=== PATIENT | female | born 1995 | race Caucasian/White ===

== ENCOUNTER 2019-11-20 09:19 | Day surgery (SDC) | payer BC ==
[2019-11-17 12:37] LABS: HEMATOCRIT 36.8 % (36-48); LYMPHOCYTES % (AUTO) 38.1 % (21.0-51.0); MEAN CORPUSCULAR HEMOGLOBIN 29.4 pg (27.0-33.0); MEAN CORPUSCULAR HGB CONC 33.4 g/dL (32.0-36.0); MONOCYTES % (AUTO) 18.1 % (3.0-13.0); NEUTROPHILS % (AUTO) 40.8 % (40.0-77.0); PLATELET COUNT (AUTO) 127 K/uL (130-400); RED BLOOD CELL COUNT(AUTO) 4.18 MIL/uL (4.00-5.50); RED CELL DISTRIBUTION WIDTH 12.7 % (11.0-15.5)
[2019-11-17 12:55] VITALS: BP 98/59
[2019-11-17 14:23] LABS: BAND NEUTROPHILS % (MANUAL) 1 % (0-2); EOSINOPHILS % (MANUAL) 1 % (1-6); LYMPHOCYTES % (MANUAL) 38 % (22-44); MAN.DIFF COMMENT-IMPRESSION MANUAL DIFFERENTIAL; MONOCYTES % (MANUAL) 18 % (2-9); SEGMENTED NEUTROPHILS % 42 % (40-70)
[2019-11-17 14:24] LABS: PLATELET MORPHOLOGY COMMENT SLIGHTLY DECREASED
--- NOTE | 2019-11-19 14:12 | NUR ---
notified Doctor Chase of wbc of 3.0, no new orders okay to proceed.
[~2019-11-20] VITALS: Ht 166.4 cm; Wt 55.8 kg
[2019-11-20] VITALS (17 sets, daily range): BP systolic 99–109; BP diastolic 53–74
[~2019-11-20 09:19] MED LIST: CEFAZOLIN SODIUM 1 GM VIAL IVP SCH
[2019-11-20] MEDS ORDERED: CALDOLOR 800MG+NS 250ML 250 ML IV ONE (09:46)
[2019-11-20] MEDS: LACTATED RINGERS 1000ML 1,000 ML IV SCH ×2 (09:54→10:47)
[2019-11-20] MEDS: CEFAZOLIN SODIUM 1 GM VIAL ONE ×2 (09:59→10:15)
[2019-11-20] MEDS ORDERED: LIDOCAINE PF 2% 5ML ABBOJECT ONE (10:09)
[2019-11-20] MEDS ORDERED: PROPOFOL 10 MG/ML 20ML VIAL IV ONE (10:10)
[2019-11-20] MEDS ORDERED: FENTANYL CITRATE PF 50 MCG/1 ML 2ML VIAL ONE (10:10)
[2019-11-20] MEDS ORDERED: MIDAZOLAM HCL 1 MG/ML 2ML VIAL ONE (10:12)
[2019-11-20] MEDS ORDERED: FERRIC SUBSULFATE ML ONE (10:33)
[2019-11-20] MEDS ORDERED: ONDANSETRON HCL 4 MG/2 ML VIAL ONE (10:35)
[2019-11-20] MEDS ORDERED: GLYCOPYRROLATE 1 MG/5 ML SYRINGE ONE (10:40)
== END 2019-11-20 12:30 | disposition home or self-care (01) ==
LOC: DAH 09:19
PROVIDERS: ATTEND Obstetrics & Gynecology
DX: Z30.432 Encounter for removal of intrauterine contraceptive device (principal); Z88.1 Allergy status to other antibiotic agents; Z98.890 Other specified postprocedural states; Z72.89 Other problems related to lifestyle; Z83.3 Family history of diabetes mellitus
CPT/HCPCS: 36415; 58562; 84703; 85025; 86850; 86900; 86901; A4215; A4221; A4222; A4223; A4351; A4355; A4663; A5120; A6260; J0690; J1741; J2001; J2250; J2405; J2704; J3010; J3490; J7030; J7120 ×2